=== PATIENT | female | born 1995 | race African-American/Black ===

== ENCOUNTER 2016-06-24 05:22 | Inpatient (IN) | payer BC, MEDICAID ==
[2016-06-24] MEDS ORDERED: Promethazine TAB* 25 MG PO ONE (07:00)
[2016-06-24] MEDS ORDERED: Nalbuphine* 20 MG/ML 1 ML VIAL IM ONE (07:00)
[2016-06-24 09:05] LABS: ROM Internal QC QC Line Present
[2016-06-24] MEDS ORDERED: Lidocaine 1% MPF* 2 ML VIAL ONE (09:13)
[2016-06-24 09:39] LABS: Hematocrit 35 % (35-47); Hemoglobin 11.1 g/dl (12.0-16.0); Mean Corpuscular HGB Conc 32 g/dl (31-36); Mean Corpuscular Hemoglobin 25 pg (27-31); Mean Corpuscular Volume 78 fL (80-97); Mean Platelet Volume 8 um3 (7.4-10.4); Red Blood Count 4.47 10^6/ul (4.0-5.4); Red Cell Distribution Width 14 % (10.5-15); White Blood Count 11.5 10^3/ul (3.5-10.8)
[2016-06-24] MEDS ORDERED: OBEPIDURAL* 250 ML ONE (09:53)
[2016-06-24] MEDS ORDERED: Sodium Citrate/Citric Acid* 15 ML UDC PO PRN (11:12)
[2016-06-24] MEDS ORDERED: Famotidine TAB* 20 MG PO PRN (11:12)
[2016-06-24] MEDS ORDERED: EPHEDrine (Pressors)* 50 MG/ML VIAL IV PUSH PRN ×2 (11:12)
[2016-06-24] MEDS ORDERED: Phenylephrine IV* 40 MCG/ML 10 ML SYRINGE IV PUSH PRN ×2 (11:12)
[2016-06-24] MEDS ORDERED: OBEPIDURAL* 250 ML EPIDURAL SCH (12:00)
[2016-06-24] MEDS ORDERED: Oxytocin in LR* 20 UNITS/1,000 ML BAG IVPB ONE (12:48)
[2016-06-24] MEDS ORDERED: Varicella Virus Vaccine Live* 0.5 ML VIAL SUBCUT ONE (13:23)
[2016-06-24] MEDS ORDERED: Dibucaine 1% 28.35 GM TUBE PR PRN (13:23)
[2016-06-24] MEDS ORDERED: Witch Hazel PAD* JAR TOPICAL PRN (13:23)
[2016-06-24] MEDS ORDERED: oxyCODONE/Acetamin 5/325 MG* TAB PO PRN (13:23)
[2016-06-24] MEDS ORDERED: Glycerin ADULT SUPP PR PRN (13:23)
[2016-06-24] MEDS ORDERED: Oxytocin in LR* 20 UNITS/1,000 ML BAG IVPB SCH (14:00)
[2016-06-24] MEDS: Docusate CAP* 100 MG PO SCH ×2 (14:55→19:57)
[2016-06-24] MEDS: Ibuprofen TAB* 600 MG PO PRN (19:57)
[2016-06-24] MEDS: Acetaminophen TAB* 325 MG PO PRN (22:50)
[2016-06-25] MEDS: Ibuprofen TAB* 600 MG PO PRN ×4 (01:52→20:22)
[2016-06-25] MEDS: Acetaminophen TAB* 325 MG PO PRN (04:17)
[2016-06-25 07:40] LABS: Hematocrit 26 % (35-47); Hemoglobin 8.3 g/dl (12.0-16.0); Mean Corpuscular HGB Conc 32 g/dl (31-36); Mean Corpuscular Hemoglobin 25 pg (27-31); Mean Corpuscular Volume 78 fL (80-97); Mean Platelet Volume 8 um3 (7.4-10.4); Red Blood Count 3.31 10^6/ul (4.0-5.4); Red Cell Distribution Width 14 % (10.5-15); White Blood Count 15.5 10^3/ul (3.5-10.8)
[2016-06-25] MEDS: Ferrous Gluconate TAB* 324 MG TAB PO SCH ×2 (08:34→20:22)
[2016-06-25] MEDS: Docusate CAP* 100 MG PO SCH ×3 (08:34→20:22)
[2016-06-25] MEDS ORDERED: Varicella Virus Vaccine Live* 0.5 ML VIAL SUBCUT ONE (09:00)
[2016-06-26] MEDS: Ibuprofen TAB* 600 MG PO PRN ×2 (02:40→08:45)
[2016-06-26] MEDS: Acetaminophen TAB* 325 MG PO PRN (05:39)
[2016-06-26 07:50] VITALS: BP 134/74
[2016-06-26] MEDS: Ferrous Gluconate TAB* 324 MG TAB PO SCH (08:45)
[2016-06-26] MEDS: Docusate CAP* 100 MG PO SCH (08:45)
== END 2016-06-26 12:10 | disposition home or self-care (01) | DRG 560 ==
LOC: MCHOBOUT 05:22 → MCHOB 09:09
PROVIDERS: ADMIT Midwife; ATTEND Midwife
PROC: 10E0XZZ Delivery of Products of Conception, External Approach (ICD-10-PCS; principal; 2016-06-24)
DX: O99.824 Streptococcus B carrier state complicating childbirth (principal); D64.9 Anemia, unspecified; O90.81 Anemia of the puerperium; Z3A.38 38 weeks gestation of pregnancy; Z37.0 Single live birth
CPT/HCPCS: 36415; 84112; 85025; 85027; 86850; 86900; 86901; A9270-GY; J2300

== ENCOUNTER 2017-07-16 11:40 | Emergency (ER) | payer BC, MEDICAID ==
[2017-07-16] MEDS ORDERED: Fluorescein Sod TOPICAL 0.6* 0.6 MG TEST OPHTHALMIC ONE ×2 (12:33)
[2017-07-16 12:55] VITALS: BP 104/76
--- NOTE | 2017-07-16 13:41 | ED ---
Throat Pain/Nasal Congestion - HPI Summary HPI Summary: Patient is an otherwise 22-year-old female presenting to the ED with the chief complaint of left eye pain, tearing and mucopurulent discharge worse in the morning. She states 2 days ago she feels she may have gotten something in the eye as she endorses pain and tearing at the time. Upon awakening this morning pain continues to be present, however the eye was closed shut with green discharge. Throughout the day she has been experiencing tearing from the eye. Denies any fevers, sweats, chills. Denies any recent viral illness. Denies any headache or rhinorrhea. No history of conjunctivitis in the past. No history of foreign bodies. Endorses a small about pain to the upper eyelid without erythema, warmth or papule/pustule. Denies any visual changes or disturbances. - History of Current Complaint Chief Complaint: EDEyeProblem Time Seen by Provider: 07/16/17 11:50 Hx Obtained From: Patient Onset/Duration: Sudden Onset Severity: Moderate Associated Signs And Symptoms: Positive: Negative - Epiglottits Risk Factors Epiglottis Risk Factors: Negative - Allergies/Home Medications Allergies/Adverse Reactions: Allergies Allergy/AdvReac Type Severity Reaction Status Date / Time No Known Allergies Allergy Verified 07/16/17 11:59 Home Medications: Home Medications Nuvaring 1 vag ring VAGINAL MONTHLY 07/16/17 [History Confirmed 07/16/17] PMH/Surg Hx/FS Hx/Imm Hx Previously Healthy: Yes Endocrine/Hematology History: Denies: Hx Diabetes Cardiovascular History: Denies: Hx Congestive Heart Failure, Hx Hypertension History: Denies: Hx Dialysis, Hx Renal Disease - Surgical History Surgery Procedure, Year, and Place: UMBILICAL HERNIA REPAIR A CHILD. Appendectomy May 2015 - Immunization History Date of Tetanus Vaccine: UNK Date of Influenza Vaccine: 2015 Hx Pertussis Vaccination: No Immunizations Up to Date: Unable to Obtain/Confirm Infectious Disease History: No Infectious Disease History: Denies: Traveled Outside the [place] in Last 30 Days - Family History Known Family History: Negative: Cardiac Disease, Hypertension, Diabetes - Social History Occupation: Employed Part-time Lives: With Family Alcohol Use: None Hx Substance Use: No Substance Use Type: Reports: None Hx Tobacco Use: No Smoking Status (MU): Never Smoked Tobacco Review of Systems Constitutional: Negative Negative: Fever, Chills, Fatigue, Skin Diaphoresis Positive: Drainage, Erythema, Other - conjunctival injection. Negative: Photophobia, Blurred Vision, Diplopia ENT: Negative Respiratory: Negative Skin: Negative Neurological: Negative All Other Systems Reviewed And Are Negative: Yes Physical Exam Triage Information Reviewed: Yes Vital Signs On Initial Exam: Initial Vitals Temp Pulse Resp BP Pulse Ox 97.4 F 76 20 119/77 100 07/16/17 11:43 07/16/17 11:43 07/16/17 11:43 07/16/17 11:43 07/16/17 11:43 Vital Signs Reviewed: Yes Appearance: Positive: Well-Appearing, Well-Nourished Skin: Positive: Warm, Skin Color Reflects Adequate Perfusion Head/Face: Positive: Normal Head/Face Inspection Eyes: Positive: Conjunctiva Inflammed, Discharge - Watery drainage Neck: Positive: Supple, No Lymphadenopathy Respiratory/Lung Sounds: Positive: Clear to Auscultation Cardiovascular: Positive: RRR, Pulses are Symmetrical in both Upper and Lower Extremities Musculoskeletal: Positive: Strength/ROM Intact Neurological: Positive: Speech Normal Psychiatric: Positive: Normal, Affect/Mood Appropriate Diagnostics - Vital Signs Vital Signs Temp Pulse Resp BP Pulse Ox 07/16/17 12:54 98.2 F 73 14 104/76 100 07/16/17 11:43 97.4 F 76 20 119/77 100 - Laboratory Lab Statement: Any lab studies that have been ordered have been reviewed, and results considered in the medical decision making process. EENT Course/Dx - Course Course Of Treatment: During the course treatment, the patient is evaluated for conjunctivitis versus foreign body versus other etiology. Fluorescein with Wood 's lamp used to assess for corneal abrasion. No floor seen uptake with a negative examination for a corneal abrasion. No evidence of trauma or foreign body. Conjunctival injection throughout the eye with watery tearing. Right eye asymptomatic. She will be treated for a conjunctivitis the possibility of a previous foreign body to the eye without evidence of corneal abrasion. Polymyxin drops every 3 hours while awake 4 days. She will follow-up with ophthalmology any symptoms become worse. - Differential Diagnoses Differential Diagnoses: Conjunctivitis, Corneal Abrasion, Foreign Body - Diagnoses Provider Diagnoses: Conjunctivitis Discharge - Sign-Out/Discharge Documenting (check all that apply): Discharge/Admit/Transfer - Discharge Plan Condition: Stable Disposition: HOME Prescriptions: Polymyx/Trimethoprim OPTH* [Polytrim OPHTH*] 1 drop BOTH EYES Q3H #1 btl Patient Education Materials: Eye Foreign Body (ED), Conjunctivitis (ED) Referrals: Cayden Garcia NP [Primary Care Provider] - Nagi Washington MD [Medical Doctor] - Additional Instructions: I have given you information on foreign body in the eye as well as conjunctivitis Both are treated with the same medication Polymyxin drops every 3 hours while awake to the left eye 4 days If he develop any worsening or changing symptoms, or develop any blurry or double vision, please see our developmental psychologist - Billing Disposition and Condition Condition: STABLE Disposition: HOME
== END 2017-07-16 12:53 | disposition home or self-care (01) ==
LOC: ED 11:40
DX: H10.9 Unspecified conjunctivitis (principal)
CPT/HCPCS: 99282

== ENCOUNTER 2017-10-29 18:59 | Emergency (ER) | payer BC, MEDICAID ==
[2017-10-29] MEDS ORDERED: Acetaminophen TAB* 325 MG PO ONE (21:10)
[2017-10-29] MEDS ORDERED: Polymyx/Trimethoprim OPTH* 10 ML BTL LEFT EYE SCH (21:30)
[2017-10-29 21:47] VITALS: BP 97/63
--- NOTE | 2017-10-29 23:19 | ED ---
Throat Pain/Nasal Congestion - HPI Summary HPI Summary: Patient is a 22-year-old female presenting to the ED with a 2 week history of left-sided throat pain radiating into the ear as well as erythema to the conjunctiva of the left eye. She denies any chest discomfort, shortness of breath, cough or mucus production. Denies history of asthma or allergies. Symptoms have been constant 2 weeks. She has not taken anything OTC for relief. Denies history of strep throat or ear infections. Patient endorses fevers, sweats, chills and bodyaches over the first few days, but always dissipated approximately 12 days ago and only the throat pain, ear pain and eye pain remained. She denies any blurry vision, double vision or difficulty seeing. Denies any dysphagia or drooling. Continues to swallow okay, but with pain. Eating and drinking okay. - History of Current Complaint Chief Complaint: EDThroatPain Time Seen by Provider: 10/29/17 19:20 Hx Obtained From: Patient Onset/Duration: Sudden Onset Severity: Moderate Associated Signs And Symptoms: Negative: Dysphagia, Drooling - Epiglottits Risk Factors Epiglottis Risk Factors: Negative - Allergies/Home Medications Allergies/Adverse Reactions: Allergies Allergy/AdvReac Type Severity Reaction Status Date / Time No Known Allergies Allergy Verified 10/29/17 19:10 PMH/Surg Hx/FS Hx/Imm Hx Previously Healthy: Yes Endocrine/Hematology History: Denies: Hx Diabetes Cardiovascular History: Denies: Hx Congestive Heart Failure, Hx Hypertension History: Denies: Hx Dialysis, Hx Renal Disease - Surgical History Surgery Procedure, Year, and Place: UMBILICAL HERNIA REPAIR A CHILD. Appendectomy May 2015 - Immunization History Date of Tetanus Vaccine: UNK Date of Influenza Vaccine: 2015 Hx Pertussis Vaccination: No Immunizations Up to Date: Yes Infectious Disease History: No Infectious Disease History: Denies: Traveled Outside the [place] in Last 30 Days - Family History Known Family History: Negative: Cardiac Disease, Hypertension, Diabetes - Social History Occupation: Unemployed Lives: Dormitory/Roommates Alcohol Use: None Hx Substance Use: No Substance Use Type: Reports: None Hx Tobacco Use: No Smoking Status (MU): Never Smoked Tobacco Review of Systems Constitutional: Negative Negative: Fever, Chills, Fatigue, Skin Diaphoresis Positive: Erythema. Negative: Photophobia, Blurred Vision, Diplopia, Drainage Positive: Sore Throat, Ear Ache. Negative: Nasal Discharge Negative: Palpitations, Chest Pain Negative: Shortness Of Breath, Cough Negative: Arthralgia, Myalgia Skin: Negative Neurological: Negative Negative: Headache, Weakness, Paresthesia, Numbness All Other Systems Reviewed And Are Negative: Yes Physical Exam Triage Information Reviewed: Yes Vital Signs On Initial Exam: Initial Vitals Temp Pulse Resp BP Pulse Ox 98.5 F 95 16 119/71 97 10/29/17 19:08 10/29/17 19:08 10/29/17 19:08 10/29/17 19:08 10/29/17 19:08 Vital Signs Reviewed: Yes Appearance: Positive: Well-Appearing Skin: Positive: Warm, Skin Color Reflects Adequate Perfusion Head/Face: Positive: Normal Head/Face Inspection Eyes: Positive: EOMI, ALLISON, Conjunctiva Clear ENT: Positive: Normal ENT inspection, Hearing grossly normal, Pharynx normal, TMs normal, Uvula midline. Negative: Nasal congestion, Nasal drainage, TM bulging, TM dull, Tonsillar swelling, Tonsillar exudate, Dental tenderness, Sinus tenderness Neck: Positive: Supple, Enlarged Nodes @ - left sided cervical anterior Respiratory/Lung Sounds: Positive: Clear to Auscultation, Breath Sounds Present Cardiovascular: Positive: RRR, Pulses are Symmetrical in both Upper and Lower Extremities Musculoskeletal: Positive: Strength/ROM Intact Neurological: Positive: Normal, Sensory/Motor Intact, Facial Symmetry, Speech Normal Psychiatric: Positive: Normal, Affect/Mood Appropriate AVPU Assessment: Alert Diagnostics - Vital Signs Vital Signs Temp Pulse Resp BP Pulse Ox 10/29/17 21:46 98.2 F 66 16 97/63 100 10/29/17 19:08 98.5 F 95 16 119/71 97 - Laboratory Lab Results: Lab Results 10/29/17 Range/Units 20:15 Group A Strep Rapid Negative (Negative) Lab Statement: Any lab studies that have been ordered have been reviewed, and results considered in the medical decision making process. EENT Course/Dx - Course Course Of Treatment: Physical examination, TM is without erythema, positive cone of light with no evidence of infection. No pharyngeal erythema, enlarged tonsils, tonsillar stones, exudates. Uvula midline. No evidence of bacterial infection. Left conjunctival injection with erythema representing a left-sided conjunctivitis. She denies any discharge or watering from the area. Left- sided cervical anterior lymph node enlarged. Strep swab obtained and is negative. She will be given a short course of steroids due to severe throat pain 2 weeks with enlarged lymph nodes. Likely secondary to viral illness. She is also given polymyxin trimethoprim drops for conjunctivitis. She will follow-up with PCP. - Diagnoses Provider Diagnoses: Viral illness, Sore throat, Lymphadenopathy Discharge - Sign-Out/Discharge Documenting (check all that apply): Patient Departure - Discharge Plan Condition: Stable Disposition: HOME Prescriptions: predniSONE [Prednisone 20 MG TAB] 20 mg PO DAILY #10 tablet Patient Education Materials: Viral Syndrome (ED), Conjunctivitis (ED) Referrals: Cayden Garcia NP [Primary Care Provider] - Additional Instructions: Ibuprofen 600 mg and Tylenol 650 mg, use these intermittently every 3 hours for pain control and inflammation Cepacol tabs or Chloraseptic tabs (throat lozenges) for pain control Prednisone 40mg once daily in the morning x 5 days Polymyxin trimethoprim drops every 3 hours while awake 5 days - Billing Disposition and Condition Condition: STABLE Disposition: Home
== END 2017-10-29 21:46 | disposition home or self-care (01) ==
LOC: ED 18:59
DX: B34.9 Viral infection, unspecified (principal); J02.9 Acute pharyngitis, unspecified; R59.1 Generalized enlarged lymph nodes; H10.9 Unspecified conjunctivitis
CPT/HCPCS: 87651; 99282; A9270-GY

== ENCOUNTER 2017-11-09 01:20 | Emergency (ER) | payer BC, MEDICAID ==
[2017-11-09] MEDS ORDERED: Lidocaine 2% VISCOUS* 15 ML UDC PO ONE ×2 (01:58→02:28)
--- NOTE | 2017-11-09 02:22 | ED ---
Throat Pain/Nasal Congestion - HPI Summary HPI Summary: Patient complains of right ear pain after putting Q-tips swab in right ear tonight. Patient states cotton was not on Q-tip when she withdrew it. Denies any other pain or symptoms. - History of Current Complaint Chief Complaint: EDEarPain Time Seen by Provider: 11/09/17 01:49 Hx Obtained From: Patient Onset/Duration: Sudden Onset Severity: Moderate Associated Signs And Symptoms: Positive: Negative Cough: None - Allergies/Home Medications Allergies/Adverse Reactions: Allergies Allergy/AdvReac Type Severity Reaction Status Date / Time No Known Allergies Allergy Verified 11/09/17 01:25 PMH/Surg Hx/FS Hx/Imm Hx Endocrine/Hematology History: Denies: Hx Diabetes Cardiovascular History: Denies: Hx Congestive Heart Failure, Hx Hypertension History: Denies: Hx Dialysis, Hx Renal Disease - Surgical History Surgery Procedure, Year, and Place: UMBILICAL HERNIA REPAIR A CHILD. Appendectomy May 2015 - Immunization History Date of Tetanus Vaccine: UNK Date of Influenza Vaccine: 2015 Infectious Disease History: No Infectious Disease History: Denies: Traveled Outside the [place] in Last 30 Days - Family History Known Family History: Negative: Cardiac Disease, Hypertension, Diabetes - Social History Alcohol Use: None Hx Substance Use: No Substance Use Type: Reports: None Hx Tobacco Use: No Smoking Status (MU): Never Smoked Tobacco Review of Systems Constitutional: Negative Eyes: Negative Positive: Ear Ache Cardiovascular: Negative Respiratory: Negative Gastrointestinal: Negative Genitourinary: Negative Musculoskeletal: Negative Skin: Negative Neurological: Negative Psychological: Normal All Other Systems Reviewed And Are Negative: Yes Physical Exam - Summary Physical Exam Summary: TMs are normal. No evidence of infection. Some possible irritation of the lining of right ear canal. No foreign body noted in right ear canal. Oropharyngeal exam normal. Triage Information Reviewed: Yes Vital Signs On Initial Exam: Initial Vitals Temp Pulse Resp BP Pulse Ox 97.8 F 60 16 121/73 98 11/09/17 01:22 11/09/17 01:22 11/09/17 01:22 11/09/17 01:22 11/09/17 01:22 Vital Signs Reviewed: Yes Appearance: Positive: Well-Appearing Skin: Positive: Warm Head/Face: Positive: Normal Head/Face Inspection Eyes: Positive: Normal ENT: Positive: Normal ENT inspection Neck: Positive: Supple Respiratory/Lung Sounds: Positive: Clear to Auscultation Cardiovascular: Positive: Normal Abdomen Description: Positive: Nontender Musculoskeletal: Positive: Normal Neurological: Positive: Normal Psychiatric: Positive: Normal AVPU Assessment: Alert - [place] Coma Scale Best Eye Response: 4 - Spontaneous Best Motor Response: 6 - Obeys Commands Best Verbal Response: 5 - Oriented Coma Scale Total: 15 Diagnostics - Vital Signs Vital Signs Temp Pulse Resp BP Pulse Ox 11/09/17 01:22 97.8 F 60 16 121/73 98 - Laboratory Lab Statement: Any lab studies that have been ordered have been reviewed, and results considered in the medical decision making process. EENT Course/Dx - Course Course Of Treatment: Patient complains of right ear pain after putting Q-tips swab in right ear tonight. Patient states cotton was not on Q-tip when she withdrew it. Denies any other pain or symptoms. Physical exam:TMs are normal. No evidence of infection. Some possible irritation of the lining of right ear canal. No foreign body noted in right ear canal. Oropharyngeal exam normal. Viscous lidocaine placed in right ear for anesthesia. Patient states ear feels better. Follow-up with primary care - Diagnoses Provider Diagnoses: Right ear pain Discharge - Sign-Out/Discharge Documenting (check all that apply): Patient Departure - Discharge Plan Condition: Stable Disposition: HOME Patient Education Materials: Earache (ED) Referrals: Cayden Garcia NP [Primary Care Provider] - Additional Instructions: If symptoms do not improve follow-up with primary care. Return to the ED for any new or worsening symptoms - Billing Disposition and Condition Condition: STABLE Disposition: Home
[2017-11-09 06:01] VITALS: BP 103/70
== END 2017-11-09 03:59 | disposition home or self-care (01) ==
LOC: ED 01:20
DX: H92.01 Otalgia, right ear (principal)
CPT/HCPCS: 99281

== ENCOUNTER 2020-02-06 08:05 | Inpatient (IN) ==
[2020-02-06] MEDS ORDERED: Lactated Ringers 1000 ml BAG 1,000 ML IV ONE ×2 (09:00→21:54)
[2020-02-06] MEDS ORDERED: Buffered Lidocaine 1% SYRIN 1 ml INTRADERM ONE (09:00)
[2020-02-06] MEDS ORDERED: Lactated Ringers 1000 ml BAG 1,000 ML IV SCH ×2 (09:00→22:00)
[2020-02-06] MEDS ORDERED: Oxytocin in LR 20 UNITS/1,000 ML BAG IVPB SCH (09:00)
[2020-02-06 09:57] LABS: ABS Lymphocytes 1.2 10^3/ul (1.0-4.8); ABS Monocytes 0.5 10^3/ul (0-0.8); ABS Neutrophils 2.4 10^3/ul (1.5-7.7); Eosinophil % 1.2 %; Hematocrit 30 % (35-47); Hemoglobin 9.9 g/dL (12.0-16.0); Lymphocyte % 28.9 %; Mean Corpuscular HGB Conc 33 g/dL (31-36); Mean Corpuscular Hemoglobin 26 pg (27-31); Mean Corpuscular Volume 79 fL (80-97); Mean Platelet Volume 7.6 fL (7.4-10.4); Nucleated Red Blood Cells % 0.1; Platelet Count 227 10^3/uL (150-450); Red Blood Count 3.79 10^6 /uL (3.70-4.87); Red Cell Distribution Width 14 % (10-15); White Blood Count 4.1 10^3/uL (3.5-10.8)
[2020-02-06 17:40] LABS: Urine Benzodiazepine Screen None Detected (None Detect); Urine Cannabinoids Screen None Detected (None Detect); Urine Opiates Screen None Detected (None Detect)
[2020-02-06] MEDS ORDERED: OBEPIDURAL 250 ML EPIDURAL ONE (20:32)
[2020-02-06] MEDS ORDERED: fentaNYL 100 mcg/2 ml 50 MCG/ML VIAL ONE (20:56)
[2020-02-06] MEDS ORDERED: EPHEDrine (Pressors) 50 MG/ML VIAL IV PUSH PRN ×3 (21:37→21:54)
[2020-02-06] MEDS ORDERED: Lactated Ringers 500 ml BAG 500 ML IV PRN (21:37)
[2020-02-06] MEDS ORDERED: Sodium Citrate/Citric Acid LIQ 15 ML UDC PO PRN (21:54)
[2020-02-06] MEDS ORDERED: Phenylephrine 40 mcg/mL 10mL (400mcg) SYRINGE IV PUSH PRN ×2 (21:54)
[2020-02-06] MEDS ORDERED: OBEPIDURAL 250 ML EPIDURAL SCH ×2 (22:00)
[2020-02-07] MEDS ORDERED: Witch Hazel PAD JAR TOPICAL PRN (00:21)
[2020-02-07] MEDS ORDERED: Oxytocin in LR 20 UNITS/1,000 ML BAG IVPB SCH (01:00)
[2020-02-07] MEDS ORDERED: Lactated Ringers 1000 ml BAG 1,000 ML IV SCH (01:00)
[2020-02-08 06:55] LABS: ABS Eosinophils 0.1 10^3/ul (0-0.6); ABS Lymphocytes 2.7 10^3/ul (1.0-4.8); ABS Monocytes 0.7 10^3/ul (0-0.8); ABS Neutrophils 3.2 10^3/ul (1.5-7.7); Eosinophil % 1.1 %; Hematocrit 29 % (35-47); Hemoglobin 9.6 g/dL (12.0-16.0); Lymphocyte % 40.2 %; Mean Corpuscular HGB Conc 34 g/dL (31-36); Mean Corpuscular Hemoglobin 27 pg (27-31); Mean Corpuscular Volume 79 fL (80-97); Mean Platelet Volume 7.8 fL (7.4-10.4); Platelet Count 239 10^3/uL (150-450); Red Blood Count 3.61 10^6 /uL (3.70-4.87); Red Cell Distribution Width 14 % (10-15); White Blood Count 6.7 10^3/uL (3.5-10.8)
[2020-02-08 07:50] VITALS: BP 115/77
[2020-02-08] MEDS ORDERED: Tetan/Diph/Pertus SYR(Tdap) 0.5 ML SYR(BOOSTRIX) use SYR contains LATEX IM ONE (13:15)
[2020-02-09] MEDS ORDERED: Influenza VAC *QUAD* 2020-21* 0.5 ML SYRINGE IM ONE (09:00)
== END 2020-02-08 14:00 | disposition home or self-care (01) | DRG 560 ==
LOC: MCHOBOUT 08:05 → MCHOB 09:09
PROVIDERS: ADMIT Midwife; ATTEND Midwife